=== PATIENT | female | born 2005 | race Caucasian/White ===

== ENCOUNTER 2024-05-27 19:11 | Emergency (ER) | payer BC | END 2024-05-27 20:50 | disposition home or self-care (01) | LOC: JD.ED 19:11 | DX: S16.1XXA Strain of muscle, fascia and tendon at neck level, initial encounter (principal); Z91.048 Other nonmedicinal substance allergy status; W17.89XA Other fall from one level to another, initial encounter | CPT/HCPCS: 72125; 72125-26; 99283 ==